=== PATIENT | male | born 2000 | race Caucasian/White ===

== ENCOUNTER 2024-12-28 18:33 | Emergency (ER) | payer OTHER, SELFPAY ==
--- NOTE | ~2024-12-28 | XR_ITS ---
HISTORY: Mandoline injury, distal COMPARISON: None TECHNIQUE: 2 views of the right second digit were performed FINDINGS: Acute minimally displaced fracture of the tuft of the second digit is identified. Overlying soft tissue defect is also noted. Trace palmar displacement is present. Joint spaces are preserved and alignment is maintained. Remaining soft tissues are unremarkable without radiopaque foreign body or significant calcification. Age-appropriate mineralization. IMPRESSION: Minimally displaced fracture of the tuft of the second digit, as detailed above. Reviewed, dictated and finalized at location A. IMPRESSION: Minimally displaced fracture of the tuft of the second digit, as d etailed above.
[2024-12-28 18:52] VITALS: BP 130/78; PULSE 75; RESP 16; TEMP 36.8; O2SAT 100
[2024-12-28 19:21] VITALS: BP 115/85; PULSE 85; RESP 16; TEMP 36.6; O2SAT 100
--- NOTE | 2024-12-28 19:26 | ED.WOUNDLAC ---
HPI - Wound/Laceration General Chief Complaint: Wound/Laceration Stated Complaint: R INDEX FINGER LACERATION Source: patient, RN notes reviewed and old records reviewed Mode of arrival: ambulatory Limitations: no limitations History of Present Illness HPI narrative: 24-year-old male presents to the [facility] with a right index finger laceration, tip. States that he was cutting cucumbers with a mandoline. Patient is a type 1 diabetic Bleeding currently controlled. Unknown last Tdap Related Data Home Medications ?Medication ?Instructions ?Recorded ?Confirmed ?Last Taken ?Type glucagon 3 mg/actuation nasal mg intranasal 12/28/24 Unknown History spray (Baqsimi) insulin aspart U-100 100 unit/mL subcut 12/28/24 Unknown History (3 mL) subcutaneous pen (Novolog FlexPen U-100 Insulin aspart) insulin glargine 100 unit/mL (3 unit subcut 12/28/24 Unknown History mL) subcutaneous pen (Lantus Solostar U-100 Insulin) Allergies Allergy/AdvReac Type Severity Reaction Status Date / Time No Known Allergies Allergy Verified 12/28/24 19:08 Review of Systems Review of Systems: All systems reviewed & are unremarkable except as noted in HPI and below Constitutional: Constitutional: Reports no additional constitutional complaints ENT: Reports system reviewed and no additional complaints, except as documented Cardiovascular: Cardiovascular: Reports no additional cardiovascular complaints, Denies chest pain and Denies dyspnea Respiratory: Respiratory: Reports no additional respiratory complaints, Denies chest congestion, Denies cough and Denies dyspnea Musculoskeletal: Musculoskeletal: Reports as per HPI Integumentary/Breasts: Skin/Breast: Reports as per HPI PMFSH Comments At the time of my signature, I reviewed and agree with the nursing past medical, surgical, social, and family history. There is no relevant family history pertinent to the patient complaint. Exam Const: General: cooperative, healthy appearing, comfortable, no acute distress, well developed, alert and well nourished Nutritional Appearance: well nourished Orientation/consciousness: patient oriented x3 Limitations: no limitations HENMT: Head: normal to inspection Eyes: General: appearance normal, both eyes and all related structures Alignment and Position: alignment normal Neck: Neck: normal visual inspection, full ROM, no lymphadenopathy and no meningeal signs Chest: Chest palpation & inspection: normal inspection of the chest Resp: Effort & Inspection: normal respiratory effort and able to speak in complete sentences Cardio: Rate: regular rate Skin: General skin exam: normal color and no rashes or lesions noted Wounds: wounds noted flap right distal 2nd finger size (2cm), bed beefy red and open Other: Flap of tip of 2nd finger right hand Neuro: General: patient oriented x3, gait normal, moves all extremities and no meningeal signs Cognition (Neuro): normal cognition Speech: normal speech Gait exam (Neuro): Normal gait present Extrem: General: normal to inspection, full ROM, capillary refill normal and normal gait Right upper extremity: Extremity exam: right hand tenderness and laceration 2nd digit distal flap Psych: Appearance: grossly normal and well kempt Mental Status: mental status grossly normal Speech and movement: Normal speech and movement present and Clear speech present Affect: normal affect Attitude: cooperative Course Course Level of Care: Express Care Visit Vital Signs Vital signs: Vital Signs Temperature 98.2 F 12/28/24 18:52 Pulse Rate 75 12/28/24 18:52 Respiratory Rate 16 12/28/24 18:52 Blood Pressure 130/78 12/28/24 18:52 Pulse Oximetry 100 12/28/24 18:52 Temperature 97.8 F 12/28/24 19:21 Pulse Rate 85 12/28/24 19:21 Respiratory Rate 16 12/28/24 19:21 Blood Pressure 115/85 12/28/24 19:21 Pulse Oximetry 100 12/28/24 19:21 Reviewed Procedures Laceration Laceration 1: Date: 12/28/24 Time: 20:00 Site: hand Side (If applicable): right Size (cm): 2 Description: flap Local Anesthetic: lidocaine 1% Amount of anesthesia used (mL): 4 Pre-repair: wound explored and irrigated (300) ====== Skin Level ====== Skin layer closed with: nylon Size (cm): 5-0 Number of sutures: 4 Technique: simple, interrupted ====== Subcutaneous Layer ====== ====== Muscle Layer ====== ====== Tendon Layer ====== Dressing: Procedure explained, verbal consent obtained. Cleaned finger with Betadine, digital block performed. Anesthesia achieved. Irrigated with 300 mils of saline to the wound. Closed with 4 sutures, patient tolerated well MDM - Wound/Laceration MDM Narrative Medical decision making narrative: Patient sitting in exam room. Nontoxic, vitals are stable. Patient presents for finger tip partial avulsion X-ray done, toe tuft fracture noted Discussed this with patient. Discussed risks of losing the tip of the finger, risk of infection, stressed importance of taking antibiotics and for close follow-up which patient verbalized understanding Discharge instructions reviewed with patient, as well as provided in writing per nursing staff. The instructions also include specific and strict return/GO TO THE ER as well as f/u information. All questions have been answered, and the patient deny any further questions with discharge and discharge plan. Some parts of this dictation were generated by voice recognition software and may contain typographical and/or grammatical inaccuracies. Differential Diagnosis Differential diagnosis: Likely laceration, abscess, abrasion and avulsion of skin Lab Data Labs: Lab Results 12/28/24 Range/Units 19:48 POC Capillary Glucose 193 H (65-105) mg/dl Reviewed Imaging Data Radiologist's impression: HISTORY: Mandoline injury, distal COMPARISON: None TECHNIQUE: 2 views of the right second digit were performed FINDINGS: Acute minimally displaced fracture of the tuft of the second digit is identified. Overlying soft tissue defect is also noted. Trace palmar displacement is present. Joint spaces are preserved and alignment is maintained. Remaining soft tissues are unremarkable without radiopaque foreign body or significant calcification. Age-appropriate mineralization. IMPRESSION: Minimally displaced fracture of the tuft of the second digit, as detailed above. Critical Care Time Critical Care Time Critical Care Time: No Discharge Plan Discharge Clinical Impression: Open fracture of tuft of distal phalanx of finger, Vaccine for [id number], combined Patient Disposition: Home Condition: Stable Instructions: Finger Fracture (ED), Finger Laceration (ED) Additional Instructions: Most important part of your care is following up with Dr. Finnegan Take antibiotics as prescribed Watch for signs of infection Keep area clean and dry. Wash with warm soapy water, pat dry. Keep covered when not at home. Wear the splint until cleared by Dr. Sanchez Follow-up with primary care provider For worsening symptoms go directly to the emergency room Patient Language: Ukrainian Prescriptions: New cephalexin 500 mg capsule 500 mg PO QID 10 Days Qty: 40 0RF No Action insulin aspart U-100 [Novolog FlexPen U-100 Insulin] 100 unit/mL (3 mL) insulin pen SUBCUT insulin glargine [Lantus Solostar U-100 Insulin] 100 unit/mL (3 mL) insulin pen SUBCUT Baqsimi 3 mg/actuation spray,non-aerosol INTRANASAL Follow-up/Referrals: Freddie,MELVIN Arenas [Primary Care Provider] - Stand Alone Forms: Work/School Release IP Time of Disposition: 20:27
[2024-12-28 19:50] LABS: Glucose Point of Care 193 mg/dl (65-105)
[2024-12-28] MEDS: LIDOCAINE 1% LOCAL INJ 2 ML AMPUL 4 ML INFILTRATE (20:06)
[2024-12-28] MEDS: TETANUS,DIPHTHERIA,AC PERTUSSIS ADULT (0.5 ML) BOOSTRIX IM (20:07)
== END 2024-12-28 20:34 | disposition home or self-care (01) ==
PROVIDERS: Emergency Provider Nurse Practitioner; PCP Registered Nurse
DX: S62.630B Displaced fracture of distal phalanx of right index finger, initial encounter for open fracture (principal); W27.4XXA Contact with kitchen utensil, initial encounter; Y93.G1 Activity, food preparation and clean up; Z23 Encounter for immunization; E10.9 Type 1 diabetes mellitus without complications
CPT/HCPCS: 12001; 29130; 73140; 82948; 90471; 90715; 99214; G0463; J2003

== ENCOUNTER 2025-01-31 10:13 | Outpatient (CLI) | payer OTHER, SELFPAY ==
--- NOTE | ~2025-01-31 | XR_ITS ---
XR finger 2nd RT min 2V 01/31/2025 10:41 Indication: Follow-up fracture second distal phalanx Procedure: 4 views right second finger Comparison: 12/28/2024 Findings: There is a healing ununited fracture right second distal phalanx at the tuft. No other frac ture is identified. No significant soft tissue abnormality. No foreign bodies. Impression: 1: Healing ununited fracture right second distal phalanx of the tuft. Reviewed, dictated and finalized at location A. Impression: 1: Healing ununited fracture right second distal phalanx of the tuft.
--- OUTSIDE RECORDS SUMMARY | 2025-01-31 10:41 | XMS_ITS | Referral Summary ---
Author Organization [facility] Address [address] [place] [address] Care Team Providers Care Fashion Stylist Name Role Phone Deepa Frazier NP Primary Care Provider [phone] Cassandra uRiz MD Unavailable [phone] Andreina Tapia NP Unavailable [phone] Encounters Date Type Department Care Team Description 11/25/2024 2:30 PM CDT Office Visit [facility] Endocrinology Metabolism and Lipid [address] [place] [address] [place] [address] Suzanne Chaudhary PA Uncontrolled type 1 diabetes mellitus with hyperglycemia (CMS/HCC) (HCC) (Primary Dx); assisted current use of insulin (HCC); Vitamin D deficiency from Last 3 Months Allergies Active Allergy Reactions Criticality Noted Date Comments No Known Allergies Other (See comments) Low Reaction: Medications acetone, urine, test strip by in vitro route. 8 Active BD Ultra-Fine Mini Pen Needle 31 gauge x /16 needle USE 4 UP TO 6 TIMES DAILY 540 each 2 2 Active dextroamphetamine -amphetamine (ADDERALL) 20 mg tablet Take 1 tablet (20 mg total) by mouth 2 (two) times a day 2 Active glucagon (BAQSIMI) 3 mg/actuation spray,non-aerosol Indications:Uncon trolled type 1 diabetes mellitus with hyperglycemia (HCC),assisted current use of insulin (HCC) Use one actuation into a single nostril. If no response, may repeat in 15 minutes using a new intranasal device. 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 15 mL 2 5 Active insulin aspart (NovoLOG) 100 unit/mL (3 mL) pen for injection Inject under the skin ICR 1:8 plus 1:25 > 150 mg/dL before meals. MDD 50 units. 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 Check Vitamin D. Assessment & Plan (01/16/2022 9:30 PM CDT): He is not taking supplements, consistently. Recommend taking Vitamin D 50,000 IU weekly. Assessment & Plan (11/04/2021 2:30 PM CDT): He states he just started taking Vitamin D once weekly supplements. Assessment & Plan (08/02/2021 9:30 PM BRUSH HOLDER INSPECTOR): Continue termite exterminator helper supplements. 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 No secondhand smoke exposure 09/22/2015 Palpitations 08/16/2015 Uncontrolled type 1 diabetes mellitus with hyperglycemia ([facility]) 04/27/2012 Overview (04/05/2019): Dx 07/24/06 Assessment & Plan (04/22/2022 9:21 AM CDT): Hemoglobin A1c decreased to 9.0%, without more frequent hypoglycemia. BG readings were reviewed today. He is taking Tresiba PM daily, sometimes forgetting. Consider increasing Tresiba to prevent hyperglycemia. He is using carb ratio and sliding scale for Novolog dosing. Encourage dose consistency. He plans to make diet and lifestyle changes to help better manage BG. Get labs done. Assessment & Plan (01/16/2022 9:33 PM CDT): Hemoglobin A1c increased to 9.9%. Recommend using FreeStyle Magalie 2 for more frequent monitoring and low BG alarms. He is taking Tresiba PM daily, consistently. He adjusts his dose based upon BG. He is taking Novolog using carb ratio with meals and using sliding scale. He does not want to make any changes to his insulin dosing today; he plans to make diet and lifestyle changes to help better manage BG. Assessment & Plan (11/04/2021 2:41 PM CDT): Hemoglobin A1c decreased to 8.8%, with hypoglycemia. Continue using FreeStyle Magalie 2 for frequent monitoring and low BG alarms. He is taking Tresiba PM daily, consistently. He is taking Novolog with meals and using sliding scale. He does not want his insulin dosing changed today, so he plans to make diet and lifestyle changes to help better manage BG once finals week is over. Assessment & Plan (08/02/2021 9:32 PM BRUSH HOLDER INSPECTOR): Hemoglobin A1c is 9.5% with fluctuating BG. Continue using FreeStyle Magalie for ease of and frequent monitoring. -Consider upgrading to FreeStyle Magalie 2. He is taking insulin consistently, at least 4 times daily. He does not want to make insulin adjustments today, as he plans to start a new routine since school just started again. Assessment & Plan (05/03/2021 3:05 PM CDT): Recent changes in his activity schedule. He has also been inconsistent in mealtime insulin and carbohydrate dosing. I stressed the importance of being more consistent. He has frequent low glucoses, as well, so would be better to take less insulin during the day if he is low to start with in the mornings. He also needs some follow-up labs as well as coronavirus vaccination Assessment & Plan (10/25/2020 2:06 PM CDT): He needs multiple adjustments in his insulin regimen, but most importantly needs to minimize risk of hypoglycemia. Assessment & Plan (04/20/2020 4:42 PM CDT): Pt out of FreeLibre sensors. Re-prescribed sensors as he was much better controlled while on CGM. He agrees and would like to use again. Schedule has been irregular with work leading to various highs and lows. Pt tends to eat at nights and trends with higher AM glucoses. Can increase from 44 to 46 units of long-acting. Pt will monitor with FreeLibre. Assessment & Plan (10/11/2019 2:35 PM CDT): Symptomatically doing reasonably well, but needs a little more basal insulin. He also needs follow-up labs. We will try to renew HIS Dexcom CGM Assessment & Plan (04/06/2019 7:23 AM CDT): He is intelligent, motivated but needs adjustments in his insulins as his glucoses are consistently too high. He is planning on starting his Dexcom CGM and will [facility] and management. Diabetes mellitus, type I 08/14/2011 Assessment & Plan (07/14/2019 3:53 PM BRUSH HOLDER INSPECTOR): The patient has type 1 diabetes, currently using Lantus and NovoLog for his diabetes management. Hemoglobin A1c at today's visit of July 14, 2019 was 9.4% improved compared to his last A1c of 10.7% in March 2019. He has been making some changes in his diet and has started going to the gym in order to increase muscle mass. Anticipate that these lifestyle changes will improve his glycemic pattern. Discussed changing Lantus to a longer-acting basal insulin. He is agreeable to this plan. Will change from Lantus to Toujeo and increase the dose to 36 units daily. Will follow with his response. Recommend that he contact [employer] regarding his sensor errors as he feels that his control was better when he was using the continuous glucose monitor. His eye exam is up-to-date. His labs are due but he prefers to wait until his next visit in October with Dr. Ruiz to have his labs done. 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 Immunizations Immunization Administration Dates Next Due DTP 12/09/2000,02/22/2000,1999 ,1999 DTaP 02/18/2005 HPV, Quadrivalent 02/08/2014 HPV, Unspecified 02/08/2014 Hep B, Adolescent or Pediatric 12/09/2000,1999,1999 HiB 12/09/2000,1999,1999 IPV 02/18/2005,12/09/2000,1999 ,1999 MMR 02/18/2005,08/26/2000 Meningococcal ACWY, Unspecified 03/06/2017,02/08 Meningococcal Conjugate (Menveo) 03/06/2017,11/2013 Pneumococcal Conjugate 7-Valent 12/09/2000,06/09,04/08/2000,02/22/2000 Tdap 02/05/2011 Varicella 02/08/2014,08/26/2000 Social History Tobacco Use Types Packs/Day Years Used Date Smoking Tobacco: Never Smokeless Tobacco: Never Tobacco Cessation:Counseling Given: No Sex and Gender Information Value Date Recorded Sex Assigned at Not on file Legal Sex Male 7:19 AM BRUSH HOLDER INSPECTOR Gender Identity Not on file Sexual Orientation Not on file Last Filed Vital Signs Vital Sign Reading Time Taken Comments Blood Pressure 113/71 11/25/2024 2:10 PM CDT Pulse 78 11/25/2024 2:10 PM CDT Temperature 36.8 C (98.3 F) 11/25/2024 2:10 PM CDT Respiratory Rate - - Oxygen Saturation 98% 09/05/2015 2:56 PM BRUSH HOLDER INSPECTOR Inhaled Oxygen Concentration - - Weight 74.4 kg (164 lb) 11/25/2024 2:10 PM CDT Height 180.3 cm (5' 11) 11/25/2024 2:10 PM CDT Body Mass Index 22.87 11/25/2024 2:10 PM CDT Plan of Treatment Not on file Procedures Procedure Name Priority Date/Time Associated Diagnosis Comments POCT HEMOGLOBIN A1C Routine 11/25/2024 2 :15 PM CDT Uncontrolled type 1 diabetes mellitus with hyperglycemia (CMS/HCC) (HCC) POCT GLUCOSE [id number] Routine 11/25/2024 2: 14 PM CDT Uncontrolled type 1 diabetes mellitus with hyperglycemia (CMS/HCC) (HCC) COMPREHENSIVE METABOLIC PANEL Routine 05/18/2021 12:35 PM BRUSH HOLDER INSPECTOR Uncontrolled type 1 diabetes mellitus with hyperglycemia (HCC) LIPID PANEL Routine 05/18/2021 12:35 PM BRUSH HOLDER INSPECTOR Uncontrolled type 1 diabetes mellitus with hyperglycemia (HCC) ALBUMIN CREATININE RATIO, URINE Routine 05/18/2021 12:35 PM BRUSH HOLDER INSPECTOR Uncontrolled type 1 diabetes mellitus with hyperglycemia (HCC) TSH Routine 04/20/2020 2:42 PM CDT Uncontrolled type 1 diabetes mellitus with hyperglycemia (HCC) DIABETES FOOT EXAM Routine 08/10/2018 from Last 3 Months or Most Recently Relevant to Health Maintenance Results * (ABNORMAL) POCT hemoglobin A1c (11/25/2024 2:15 PM CDT) Hemoglobin A1C, POC 8.2(A) 4.0 - 5.6 % Blood 11/25/2024 2:15 PM CDT Suzanne NO POINT OF CARE TEST ORDERA BLES Final Result * POCT glucose (11/25/2024 2:14 PM CDT) Glucose Blood, POC 242 Normal Fasting 70 - 100, Random <200 mg/dL Blood 11/25/2024 2:14 PM CDT Suzanne NO POINT OF CARE TEST ORDERA BLES Final Result * Albumin Creatinine Ratio, Urine (05/18/2021 12:35 PM BRUSH HOLDER INSPECTOR) Creatinine, ur 29 20 - 320 mg/dL [facility] Microalbumin, ur 0.6 See Note: mg/dL [facility] Comment: Reference Range: Reference Range Not established Microalbumin/creat ratio 21 <30 mcg/mg creat [facility] Comment: The ADA defines abnormalities in albumin excretion as follows: Albuminuria Category Result (mcg/mg creatinine) Normal to Mildly increased <30 Moderately increased 30-299 Severely increased > OR = 300 The ADA recommends that at least two of three specimens collected within a 3-6 month period be abnormal before considering a patient to be within a diagnostic category. Urine 05/18/2021 12:3 5 PM BRUSH HOLDER INSPECTOR 05/18/2021 12:36 PM BRUSH HOLDER INSPECTOR Narrative [facility] - 05/19/2021 4:48 PM BRUSH HOLDER INSPECTOR VARIFIED ALL INFO FASTING:YES FASTING: YES Cassandra Ruiz MD LAB URINE ORDERABLES Final Result Performing Organization Address [facility]/ZIP Co de Phone Number JOS [facility] [address] [facility] [place] [address] * Lipid panel (05/18/2021 12:35 PM BRUSH HOLDER INSPECTOR) Cholesterol 125 <200 mg/dL [facility] HDL 52 > OR = 40 mg/dL [facility] Triglycerides 48 <150 mg/dL [facility] LDL 59 mg/dL (calc) [facility] Comment: Reference range: <100 Desirable range <100 mg/dL for primary prevention; <70 mg/dL for patients with CHD or diabetic patients with > or = 2 CHD risk factors. LDL-C is now calculated using the Chetan-Tucker calculation, which is a validated novel method providing better accuracy than the Friedewald equation in the estimation of LDL-C. Chetan SS et al. ZENA. 2013;310(19): 4373-1667 (http://education.[employer]/faq/QTE212) Chol/HDL ratio 2.4 <5.0 (calc) [facility] Non-HDL, (LDL+VLDL) 73 <130 mg/dL (calc) [facility] Comment: For patients with diabetes plus 1 major ASCVD risk factor, treating to a non-HDL-C goal of <100 mg/dL (LDL-C of <70 mg/dL) is considered a therapeutic option. Blood specimen (specimen) 05/18/2021 12:35 PM BRUSH HOLDER INSPECTOR 05/18/2021 12:36 PM BRUSH HOLDER INSPECTOR Narrative [facility] - 05/19/2021 4:48 PM BRUSH HOLDER INSPECTOR VARIFIED ALL INFO FASTING:YES FASTING: YES Cassandra Ruiz MD LAB BLOOD ORDERABLES Final Result Performing Organization Address [facility] Co de Phone Number JOS [address] [address] [address] [address] * (ABNORMAL) Comprehensive metabolic panel (05/18/2021 12:35 PM BRUSH HOLDER INSPECTOR) Glucose 243(H) 65 - 99 mg/dL [facility] Comment: Fasting reference interval For someone without known diabetes, a glucose value >125 mg/dL indicates that they may have diabetes and this should be confirmed with a follow-up test. BUN 12 7 - 25 mg/dL [facility] Creatinine 0.86 0.60 - 1.35 mg/dL [facility] eGFR NON-AFR. CITIZEN [place] 124 > OR = 60 mL/min/1. 73m2 [facility] EGFR 144 > OR = 60 mL/min/1. 73m2 [facility] BUN/creat ratio NOT APPLICABLE 6 - 22 (calc) [facility] Sodium 137 135 - 146 mmol/L [facility] Potassium, pl 4.4 3.5 - 5.3 mmol/L [facility] Chloride 99 98 - 110 mmol/L [facility] CO2 34(H) 20 - 32 mmol/L [facility] Calcium 10.0 8.6 - 10.3 mg/dL [facility] Protein, sr 6.9 6.1 - 8.1 g/dL [facility] Albumin 4.6 3.6 - 5.1 g/dL [facility] GLOBULIN 2.3 1.9 - 3.7 g/dL (calc) [facility] Alb/glob ratio 2.0 1.0 - 2.5 (calc) [facility] Bilirubin, total 0.4 0.2 - 1.2 mg/dL [facility] Alk phos 56 36 - 130 U/L [facility] AST 33 10 - 40 U/L [facility] ALT (SGPT) 37 9 - 46 U/L [facility] Blood specimen (specimen) 05/18/2021 12:35 PM BRUSH HOLDER INSPECTOR 05/18/2021 12:36 PM BRUSH HOLDER INSPECTOR Narrative [facility] - 05/19/2021 4:48 PM BRUSH HOLDER INSPECTOR VARIFIED ALL INFO FASTING:YES FASTING: YES Cassandra Ruiz MD LAB BLOOD ORDERABLES Final Result [facility] [id number] [phone] * TSH (04/20/2020 2:42 PM CDT) TSH (Thyrotropin) 0.62 0.27 - 4.20 uIU/mL [facility] Blood specimen (specimen) 04/20/2020 2:42 PM CDT 04/20/2020 3:17 PM CDT us Cassandra Ruiz MD LAB BLOOD ORDERABLES Final Result [facility] * DIABETES FOOT EXAM (08/10/2018) Pathologist [facility] Diabetic Foot Exam Normal us Historical Provider HEALTH MAINTENANCE Final Result from Last 3 Months or Most Recently Relevant to Health Maintenance Insurance [facility] [id number] Care Teams Fashion Stylist Relationship Specialty Start Date End Date Deepa Frazier NP [address] [place] [address] [address] [place] [phone] PCP - General Family Practice 07/13/19 Cassandra Ruiz MD [address] [place] [address] [place] [address] Referring Physician Endocrinology Diabetes & Metabolism 04/20/20 Willie, Andreina Al NP [address] [place] [address] [place] [address] Nurse Practitioner Nurse Practitioner 10/23/20
--- OUTSIDE RECORDS SUMMARY | 2025-01-31 10:41 | XMS_ITS | Clinical Summary ---
Author Organization [facility] Address [address] [place] [address] Care Team Providers Care Coordinator Hotels Name Role Phone Deepa Frazier NP Primary Care Provider [phone] Cassandra Ruiz MD Unavailable [phone] Andreina Tapia NP Unavailable [phone] Allergies Active Allergy Reactions Criticality Noted Date Comments No Known Allergies Other (See comments) Low Reaction: Medications acetone, urine, test strip by in vitro route. 8 Active BD Ultra-Fine Mini Pen Needle 31 gauge x 3/16 needle USE 4 UP TO 6 TIMES DAILY 540 each 2 2 Active dextroamphetamine -amphetamine (ADDERALL) 20 mg tablet Take 1 tablet (20 mg total) by mouth 2 (two) times a day 2 Active glucagon (BAQSIMI) 3 mg/actuation spray,non-aerosol Indications:Uncon trolled type 1 diabetes mellitus with hyperglycemia (HCC),shelter current use of insulin (HCC) Use one actuation into a single nostril. If no response, may repeat in 15 minutes using a new intranasal device. 2 each 3 5 Active insulin glargine (LANTUS) 100 unit/mL (3 mL) pen for injectionIndicati ons:Uncontrolled type 1 diabetes mellitus with hyperglycemia (HCC),shelter current use of insulin (HCC) Inject 38 units under the skin once daily. 15 mL 2 5 Active insulin aspart (NovoLOG) 100 unit/mL (3 mL) pen for injection Inject under the skin ICR 1:8 plus 1:25 > 150 mg/dL before meals. MDD 50 units. 15 mL 3 5 Active blood glucose diagnostic stripIndications: Uncontrolled type 1 diabetes mellitus with hyperglycemia (HCC),shelter current use of insulin (HCC) Use to check blood sugar 4 times daily, or as directed. 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 Assessment & Plan (08/02/2021 9:30 PM GAS SPECIALIST): Continue intermediate teacher supplements. 05/2021- Vitamin D 18 Assessment & [...] Uncontrolled type 1 diabetes mellitus with hyperglycemia ([facility]) 04/27/2012 Overview (04/05/2019): Dx [...] over. Assessment & Plan (08/02/2021 9:32 PM GAS SPECIALIST): Hemoglobin A1c is 9.5% with fluctuating BG. [...] 08/14/2011 Assessment & Plan (07/14/2019 3:53 PM GAS SPECIALIST): The patient has type 1 diabetes, currently [...] with his response. 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 Encounters Date Type Department Care Team Description 11/25/2024 2:30 PM CDT Office Visit [facility] Endocrinology Metabolism and Lipid [address] [facility] [address] [place] [address] [place] [address] Suzanne Chaudhary PA Uncontrolled type 1 diabetes mellitus with hyperglycemia (CMS/HCC) (HCC) (Primary Dx); shelter current use of insulin (HCC); Vitamin D deficiency from Last 3 Months Immunizations Immunization Administration Dates Next Due DTP 12/09/2000,02/22/2000,1999 ,1999 DTaP 02/18/2005 HPV, Quadrivalent 02/08/2014 HPV, Unspecified 02/08/2014 Hep B, Adolescent or Pediatric 12/09/2000,1999,1999 HiB 12/09/2000,1999,1999 IPV 02/18/2005,12/09/2000,1999 ,1999 MMR 02/18/2005,08/26/2000 Meningococcal ACWY, Unspecified 03/06/2017,02/08 Meningococcal Conjugate (Menveo) 03/06/2017,11/2013 Pneumococcal Conjugate 7-Valent 12/09/2000,06/09,04/08/2000,02/22/2000 Tdap 02/05/2011 Varicella 02/08/2014,08/26/2000 Surgical History Surgery Date Site/Laterality Comments PILONIDAL CYSTECTOMY x2 TONSILLECTOMY/ADENOIDECTOMY Medical History Medical History Date Comments Tonsillitis Family History Medical History Relation Name Comments Anxiety disorder Mother Anxiety - ( Added by TW Conv) Relation Name Status Comments Mother Social History Tobacco Use Types Packs/Day Years Used Date Smoking Tobacco: Never Smokeless Tobacco: Never Tobacco Cessation:Counseling Given: No Sex and Gender Information Value Date Recorded Sex Assigned at Not on file Legal 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 Gender Identity Not on file Sexual Orientation Not on file Obstetrics History Last Filed Vital Signs Vital Sign Reading Time Taken Comments Blood Pressure 113/71 11/25/2024 2:10 PM CDT Pulse 78 11/25/2024 2:10 PM CDT Temperature 36.8 C (98.3 F) 11/25/2024 2:10 PM CDT Respiratory Rate - - Oxygen Saturation 98% 09/05/2015 2:56 PM GAS SPECIALIST Inhaled Oxygen Concentration - - Weight 74.4 kg (164 lb) 11/25/2024 2:10 PM CDT Height 180.3 cm (5' 11) 11/25/2024 2:10 PM CDT Body Mass Index 22.87 11/25/2024 2:10 PM CDT Plan of Treatment Health Maintenance Due Date Last Done Comments Depression Screening 1999 Hepatitis C Screening 1999 Pneumococcal vaccine <65 (1 of 1 - PPSV23) 2005 12/09/2000, 06/09/2000, 04/08/2000, Additional history exists Dilated Eye Exam 2009 HPV Vaccines (2 - Male 2-dos e series) 08/11/2014 02/08/2014, 02/08/2014 Regular Well Visit/Exam 18-64 2017 Foot Exam 08/10/2019 08/10/2018 DTaP/Tdap/Td Vaccine (7 - Td or Tdap) 02/05/2021 02/05/2011, 02/18/2005, 02/18/2005, Additional history exists TSH Level 04/20/2021 04/20/2020, 07/09/2017 Albumin Creatinine Ratio, Urine 05/18/2022 05/18/2021, 04/20/2020, 07/09/2017 eGFR 05/18/2022 05/18/2021 Lipid Panel 02/18/2025 02/19/2024, 05/07, 05/18/2021, Additional history exists Influenza Vaccine (#1) 2025 Hemoglobin A1C 05/28/2025 11/25/2024, 07/07, 04/22/2022, Additional history exists Hepatitis B Screening Completed 12/09/2000 , 1999, 1999 Varicella Vaccines Completed 02/08/2014, 0 02/18/2005, 08/26/2000, Additional history exists Procedures Procedure Name Priority Date/Time Associated Diagnosis Comments POCT HEMOGLOBIN A1C Routine 11/25/2024 2 :15 PM CDT Uncontrolled type 1 diabetes mellitus with hyperglycemia (CMS/HCC) (HCC) POCT GLUCOSE [id number] Routine 11/25/2024 2: 14 PM CDT Uncontrolled type 1 diabetes mellitus with hyperglycemia (CMS/HCC) (HCC) COMPREHENSIVE METABOLIC PANEL Routine 05/18/2021 12:35 PM GAS SPECIALIST Uncontrolled type 1 diabetes mellitus with hyperglycemia (HCC) LIPID PANEL Routine 05/18/2021 12:35 PM GAS SPECIALIST Uncontrolled type 1 diabetes mellitus with hyperglycemia (HCC) ALBUMIN CREATININE RATIO, URINE Routine 05/18/2021 12:35 PM GAS SPECIALIST Uncontrolled type 1 diabetes mellitus with hyperglycemia (HCC) TSH Routine 04/20/2020 2:42 PM CDT Uncontrolled type 1 diabetes mellitus with hyperglycemia (HCC) HM DIABETES FOOT EXAM Routine 08/10/2018 from Last [...] Albumin Creatinine Ratio, Urine (05/18/2021 12:35 PM GAS SPECIALIST) Creatinine, ur 29 20 - 320 mg/dL [...] diagnostic category. Urine 05/18/2021 12:3 5 PM GAS SPECIALIST 05/18/2021 12:36 PM GAS SPECIALIST Narrative [facility] - 05/19/2021 4:48 PM GAS SPECIALIST VARIFIED ALL INFO FASTING:YES FASTING: YES Cassandra Ruiz MD LAB URINE ORDERABLES Final Result [facility] [address] [place] [address] * Lipid panel (05/18/2021 12:35 PM GAS SPECIALIST) Cholesterol 125 <200 mg/dL [facility] [...] factors. LDL-C is now calculated using the Daniel calculation, which is a validated novel method providing better accuracy than the Friedewald equation in the estimation of LDL-C. Chetan SS et al. ZENA. 2013;310(19): 3148-2634 (http://education.Happify/faq/FXP049) Chol/HDL ratio 2.4 <5.0 (calc) [facility] Non-HDL, (LDL+VLDL) 73 <130 mg/dL (calc) [facility] Comment: For patients with diabetes plus 1 major ASCVD risk factor, treating to a non-HDL-C goal of <100 mg/dL (LDL-C of <70 mg/dL) is considered a therapeutic option. Blood specimen (specimen) 05/18/2021 12:35 PM GAS SPECIALIST 05/18/2021 12:36 PM GAS SPECIALIST Narrative [facility] - 05/19/2021 4:48 PM GAS SPECIALIST VARIFIED ALL INFO FASTING:YES FASTING: YES Cassandra Ruiz MD LAB BLOOD ORDERABLES Final Result [facility] [address] [place] [address] * (ABNORMAL) Comprehensive metabolic panel (05/18/2021 12:35 PM GAS SPECIALIST) Glucose 243(H) 65 - 99 mg/dL [facility] Comment: Fasting reference interval For someone without known diabetes, a glucose value >125 mg/dL indicates that they may have diabetes and this should be confirmed with a follow-up test. BUN 12 7 - 25 mg/dL [facility] Creatinine 0.86 0.60 - 1.35 mg/dL [facility] eGFR NON-AFR. GERMAN 124 > OR = 60 mL/min/1. 73m2 [facility] EGFR 144 > OR = 60 mL/min/1. 73m2 [facility] BUN/creat ratio NOT APPLICABLE 6 - 22 (calc) [facility] Sodium 137 135 - 146 mmol/L [facility] Potassium, pl 4.4 3.5 - 5.3 mmol/L [facility] Chloride 99 98 - 110 mmol/L [facility] CO2 34(H) 20 - 32 mmol/L [facility] Calcium 10.0 8.6 - 10.3 mg/dL [facility] Protein, sr 6.9 6.1 - 8.1 g/dL [facility] Albumin 4.6 3.6 - 5.1 g/dL [facility] GLOBULIN 2.3 1.9 - 3.7 g/dL (calc) [facility] Alb/glob ratio 2.0 1.0 - 2.5 (calc) [facility] Bilirubin, total 0.4 0.2 - 1.2 mg/dL [facility] Alk phos 56 36 - 130 U/L [facility] AST 33 10 - 40 U/L [facility] ALT (SGPT) 37 9 - 46 U/L [facility] Blood specimen (specimen) 05/18/2021 12:35 PM GAS SPECIALIST 05/18/2021 12:36 PM GAS SPECIALIST Narrative [facility] - 05/19/2021 4:48 PM GAS SPECIALIST VARIFIED ALL INFO FASTING:YES FASTING: YES Cassandra Riuz MD LAB BLOOD ORDERABLES Final Result [facility] [address] [address] * TSH (04/20/2020 2:42 PM CDT) TSH (Thyrotropin) 0.62 0.27 - 4.20 uIU/mL [facility] Blood specimen (specimen) 04/20/2020 2:42 PM CDT 04/20/2020 3:17 PM CDT Cassandra Ruiz MD LAB BLOOD ORDERABLES Final Result [facility] * DIABETES FOOT EXAM (08/10/2018) Diabetic Foot Exam Normal Historical Provider HEALTH MAINTENANCE Final Result from Last 3 Months or Most Recently Relevant to Health Maintenance Insurance [id number] [place] [id number] Care Teams Coordinator Hotels Relationship Specialty Start Date End Date Deepa Frazier NP [address] [place] [address] PCP - General Family Practice 07/13/19 Cassandra Ruiz MD [address] [place] [address] Referring Physician Endocrinology Diabetes & Metabolism 04/20/20 Rehg, Andreina Al NP [address] [place] [address] [place] [address] Nurse Practitioner Nurse Practitioner 10/23/20
== END 2025-01-31 10:14 | disposition home or self-care (01) ==
PROVIDERS: PCP Registered Nurse; Visit Provider Physician Assistant Surgical
DX: S62.630D Displaced fracture of distal phalanx of right index finger, subsequent encounter for fracture with routine healing (principal); X58.XXXD Exposure to other specified factors, subsequent encounter
CPT/HCPCS: 73140